=== PATIENT | female | born 1980 | race Caucasian/White ===

== ENCOUNTER 2024-07-03 14:18 | Emergency (ER) | payer OTHER ==
[~2024-07-03] VITALS: Ht 165.1 cm; Wt 81.6 kg
[2024-07-03] MEDS ORDERED: ACETAMINOPHEN 325 MG TAB PO ONE (15:45)
[2024-07-03 16:00] LABS: BASO % 0.9 % (0.0-1.0); EOS % 0.2 % (1.0-4.0); HEMATOCRIT 43.2 % (37.0-47.0); LYMPH # 0.8 10*3/uL (1.3-4.4); LYMPH % 17.8 % (27.0-41.0); MEAN CELL VOLUME 85.5 fl (81.0-99.0); MEAN CORPUSCULAR HGB 28.5 pg (27.0-31.0); MEAN CORPUSCULAR HGB CONC 33.3 g/dl (33.0-37.0); MEAN PLATELET VOLUME 8.9 fl (9.6-12.3); MONO # 0.3 10*3/uL (0.1-1.0); NEUT # 3.4 10*3/uL (2.3-7.9); NEUT % 73.7 % (47.0-73.0); PLATELET COUNT AUTOMATED 199 10*3/uL (130-400); RED BLOOD COUNT 5.05 10*6/uL (4.10-5.10); RED CELL DISTRI WIDTH 12.7 % (0-14.5); WHITE BLOOD COUNT 4.6 10*3/uL (4.8-10.8)
[2024-07-03 16:21] LABS: BUN 10 mg/dl (9-23); CHLORIDE 101 mmol/L (98-107); POTASSIUM 3.3 mmol/L (3.4-5.1)
[2024-07-03] MEDS ORDERED: POTASSIUM CHLORIDE 20 MEQ TAB PO ONE (17:00)
== END 2024-07-03 19:02 | disposition home or self-care (01) ==
LOC: ED 14:18
PROVIDERS: Internal Medicine
DX: B34.9 Viral infection, unspecified (principal); Z20.822 Contact with and (suspected) exposure to COVID-19; E78.00 Pure hypercholesterolemia, unspecified; I10 Essential (primary) hypertension; R10.2 Pelvic and perineal pain; Z87.891 Personal history of nicotine dependence

== ENCOUNTER 2024-07-07 17:26 | Emergency (ER) | payer OTHER ==
[~2024-07-07] VITALS: Ht 167.6 cm; Wt 81.6 kg
[2024-07-07] MEDS ORDERED: SODIUM CHLORIDE 0.9% 1,000 ML IV ONE (19:20)
[2024-07-07 19:45] LABS: MEAN CELL VOLUME 83.3 fl (81.0-99.0); MEAN CORPUSCULAR HGB 28.2 pg (27.0-31.0); MEAN CORPUSCULAR HGB CONC 33.8 g/dl (33.0-37.0); MEAN PLATELET VOLUME 9.7 fl (9.6-12.3); PLATELET COUNT AUTOMATED 120 10*3/uL (130-400); RED BLOOD COUNT 4.68 10*6/uL (4.10-5.10); RED CELL DISTRI WIDTH 13.2 % (0-14.5); WHITE BLOOD COUNT 4.6 10*3/uL (4.8-10.8)
[2024-07-07 19:47] LABS: MANUAL DIFF REFLEX YES
[2024-07-07 19:59] LABS: BUN 12 mg/dl (9-23); CHLORIDE 100 mmol/L (98-107); POTASSIUM 3.1 mmol/L (3.4-5.1)
[2024-07-07 20:14] LABS: ATYPICAL LYMPHS 3 % (0-0); PLATELET SUFFICIENCY LOW (NORMAL); TOTAL CELLS COUNTED 100 #CELLS; TOXIC GRANULATION SLIGHT
[2024-07-07] MEDS ORDERED: POTASSIUM CHLORIDE 20 MEQ TAB PO ONE (21:00)
[2024-07-07] MEDS ORDERED: Dexamethasone Sodium Phospha 4 MG/ML VIAL IV ONE (21:00)
[2024-07-07] MEDS ORDERED: Ondansetron Hydrochloride 4 MG/2 ML VIAL IV ONE (22:00)
[2024-07-07] MEDS ORDERED: PREDNISONE20 M1 PO (22:08)
[2024-07-07] MEDS ORDERED: ZITHROMAX250 MG PO (22:08)
== END 2024-07-07 23:01 | disposition home or self-care (01) ==
LOC: ED 17:26
PROVIDERS: Internal Medicine
DX: B34.9 Viral infection, unspecified (principal); Z20.822 Contact with and (suspected) exposure to COVID-19; R11.0 Nausea; I10 Essential (primary) hypertension; E78.00 Pure hypercholesterolemia, unspecified